=== PATIENT | female | born 1995 | race Caucasian/White ===

== ENCOUNTER 2017-02-13 11:41 | Emergency (ER) | payer OTHER ==
--- NOTE | 2017-02-13 13:58 | ED MED RECONCILIATION SUMMARY ---
Patient: LAURA LAL Medication Reconciliation Report [facility] VisitID: [id number] [address] [place] [address] 21y, F Registration Date/Time: 02/13/2017 Weight: 62.1 kg Height/Length: 63 in. BMI: 24.3 ALLERGIES: Sulfa Antibiotics The patient's Home Medications are listed below: THE FOLLOWING MEDICATIONS NEED TO BE RECONCILED: Sharon-[place] Oral Sudafed Oral The source(s) of the original Home Medication information: patient The following Medications were given to the patient in the Emergency Department: None. The following Medications were prescribed to the patient: None.
--- NOTE | 2017-02-13 13:58 | ED NURSING NOTES ---
Clinical Report - Nurses [facility] [address] [place] [address] 02/13/2017 11:42 Patient: LAURA ALL TRIAGE Triage time 11:53. Acuity: LEVEL 4. Chief Complaint: ("pressure in my face"). Alert. No acute distress. LUCAS COMA SCORE: Lucas Coma Scale: 15- eyes open spontaneously (4); best verbal response- oriented x 4 (5); best motor response- obeys commands (6). --11:59 Shalonda Lerma R.N. 11:53 02/13/17. BP: 99/51. HR: 86. RR: 18. O2 saturation: 95%. Temp: 98.3 F (oral). Pain level now: 03/17. --11:59 Shalonda Lerma R.N. Weight: 62.1 kg stated. Height/Length: 63 inches Per Patient. BMI: 24.3. --11:55 Shalonda Lerma R.N. Medications Sharon-[place] Oral. Sudafed Oral. --11:54 Shalonda Lerma R.N. Medication/allergy information source: the patient. --11:59 Shalonda Lerma R.N. Allergies Sulfa Antibiotics. --11:54 Shalonda Lerma R.N. History Arrived by private vehicle. Historian: patient. Accompanied by friend. Primary physician (Michael). Onset. (about 1 month). PAST MEDICAL HX: Immunizations: up-to-date. Last normal menstrual period- has IUD. SOCIAL HX: Light tobacco smoker- less than 1/2 a pack per day. No alcohol use or drug use. FALL RISK ASSESSMENT: Fall risk assessment completed. No fall risk identified. FUNCTIONAL ASSESSMENT: Functional assessment: no impairments noted. LEARNING NEEDS ASSESSMENT: The learning needs assessment revealed no barriers. --11:59 Shalonda Lerma R.N. PROBLEMS: Ulcerative Colitis. --11:59 Shalonda Lerma R.N. Assessment GENERAL / NEURO / PSYCH: Alert. Oriented X 4. Appears in no acute distress. Patient appears calm and cooperative. RESPIRATORY: Respirations not labored. SKIN: Skin is warm and dry. --11:59 Shalonda Lerma R.N. Interventions ID and allergy band on patient. To treatment room. --11:59 Shalonda Lerma R.N. PHYSICAL ASSESSMENT 12:02/13/17. Ambulatory to room. GENERAL / NEURO / PSYCH: Alert. Oriented X 4. Appears in no acute distress. RESPIRATORY: Respirations not labored. SKIN: Skin is warm and dry. --12:01 Shalonda Lerma R.N. NURSING PROGRESS NOTES 12:02/13/17. Head of bed elevated. Call light placed in reach. Side rails up x 1. Bed placed in lowest position. Brakes of bed on. --12:01 Shalonda Lerma R.N. 13:16 no one in room when the OTR TANKER TRUCK DRIVER went to see pt, paged her overhead to return to ED. --13:16 Shalonda Lerma R.N. DISPOSITION / DISCHARGE Departure time: 1350. The patient left the Emergency Department without being seen by a physician; patient was accompanied by a sand bobber. The patient appears to be alert, oriented x4, coherent and in no acute distress. The patient stated is leaving the ED (unknown, she left without telling anyone). Notified the ED physician and charge nurse of patient departure. Patient left without signing form prior to leaving. She left the Emergency Department ambulatory and via private vehicle. ( pt was paged overhead and did not return to the ED). The patient eloped. --13:53 Shalonda Lerma R.N. Locked/Released at 02/13/2017 13:58 by Shalonda Lerma R.N.
--- NOTE | 2017-02-13 13:58 | ED MED RECONCILIATION SUMMARY ---
Patient: LAURA LAL Medication Reconciliation Report [facility] VisitID: [id number] [address] [place] [address] 21y, F Registration Date/Time: 02/13/2017 Weight: 62.1 kg Height/Length: 63 in. BMI: 24.3 ALLERGIES: Sulfa Antibiotics The patient's Home Medications are listed below: THE FOLLOWING MEDICATIONS NEED TO BE RECONCILED: Sharon-[place] Oral Sudafed Oral The source(s) of the original Home Medication information: patient The following Medications were given to the patient in the Emergency Department: None. The following Medications were prescribed to the patient: None.
--- NOTE | 2017-02-13 13:58 | ED MAR SUMMARY ---
..... Medication Administration Record [facility] [address] [place], [place] [id number] Patient: LAURA LAL Visit ID: [id number] 21y, F Weight: 62.1 kg Height/Length: 63 in BMI: 24.3 ALLERGIES: Sulfa Antibiotics
--- NOTE | 2017-02-13 13:58 | ED NURSING NOTES ---
Clinical Report - Nurses [facility] [address] [place] [address] 02/13/2017 11:42 Patient: LAURA LAL TRIAGE Triage time 11:53. Acuity: LEVEL 4. Chief Complaint: ("pressure in my face"). Alert. No acute distress. LUCAS COMA SCORE: Lucas Coma Scale: 15- eyes open spontaneously (4); best verbal response- oriented x 4 (5); best motor response- obeys commands (6). --11:59 Shalonda Lerma R.N. 11:53 02/13/17. BP: 99/51. HR: 86. RR: 18. O2 saturation: 95%. Temp: 98.3 F (oral). Pain level now: 03/17. --11:59 Shalonda Lerma R.N. Weight: 62.1 kg stated. Height/Length: 63 inches Per Patient. BMI: 24.3. --11:55 Shalonda Lerma R.N. Medications Sharon-[place] Oral. Sudafed Oral. --11:54 Shaolnda Lerma R.N. Medication/allergy information source: the patient. --11:59 Shalonda Lerma R.N. Allergies Sulfa Antibiotics. --11:54 Shalonda Lerma R.N. History Arrived by private vehicle. Historian: patient. Accompanied by friend. Primary physician (Michael). Onset. (about 1 month). PAST MEDICAL HX: Immunizations: up-to-date. Last normal menstrual period- has IUD. SOCIAL HX: Light tobacco smoker- less than 1/2 a pack per day. No alcohol use or drug use. FALL RISK ASSESSMENT: Fall risk assessment completed. No fall risk identified. FUNCTIONAL ASSESSMENT: Functional assessment: no impairments noted. LEARNING NEEDS ASSESSMENT: The learning needs assessment revealed no barriers. --11:59 Shalonda Lerma R.N. PROBLEMS: Ulcerative Colitis. --11:59 Shalonda Lerma R.N. Assessment GENERAL / NEURO / PSYCH: Alert. Oriented X 4. Appears in no acute distress. Patient appears calm and cooperative. RESPIRATORY: Respirations not labored. SKIN: Skin is warm and dry. --11:59 Shalonda Lerma R.N. Interventions ID and allergy band on patient. To treatment room. --11:59 Shalonda Lerma R.N. PHYSICAL ASSESSMENT 12:02/13/17. Ambulatory to room. GENERAL / NEURO / PSYCH: Alert. Oriented X 4. Appears in no acute distress. RESPIRATORY: Respirations not labored. SKIN: Skin is warm and dry. --12:01 Shalonda Lerma R.N. NURSING PROGRESS NOTES 12:02/13/17. Head of bed elevated. Call light placed in reach. Side rails up x 1. Bed placed in lowest position. Brakes of bed on. --12:01 Shalonda Lerma R.N. 13:16 no one in room when the RADIO REPAIR TEACHER went to see pt, paged her overhead to return to ED. --13:16 Shalonda Lerma R.N. DISPOSITION / DISCHARGE Departure time: 1350. The patient left the Emergency Department without being seen by a physician; patient was accompanied by a measurement department chief clerk. The patient appears to be alert, oriented x4, coherent and in no acute distress. The patient stated is leaving the ED (unknown, she left without telling anyone). Notified the ED physician and charge nurse of patient departure. Patient left without signing form prior to leaving. She left the Emergency Department ambulatory and via private vehicle. ( pt was paged overhead and did not return to the ED). The patient eloped. --13:53 Shalonda Lerma R.N. Locked/Released at 02/13/2017 13:58 by Shalonda Lerma R.N.
--- NOTE | 2017-02-13 13:58 | ED MAR SUMMARY ---
..... Medication Administration Record [facility] [address] [place], [place] [id number] Patient: LAURA LAL Visit ID: [id number] 21y, F Weight: 62.1 kg Height/Length: 63 in BMI: 24.3 ALLERGIES: Sulfa Antibiotics
== END 2017-02-13 13:15 | disposition home or self-care (01) ==
LOC: ED SRH 11:41
DX: Z53.21 Procedure and treatment not carried out due to patient leaving prior to being seen by health care provider (principal)